=== PATIENT | female | born 1970 | race Asian ===

== ENCOUNTER → 2022-06-12 | Outpatient (CLI) | payer OTHER ==
[2022-06-13 05:07] LABS: RUBELLA AB IGG-REFLAB 8.55 index (Immune >0.99); RUBEOLA (MEASLES) IGG >300.0 AU/mL (Immune >16.4)
== END | disposition home or self-care (01) ==
LOC: LABMN 10:19
PROVIDERS: ATTEND Internal Medicine
DX: Z02.1 Encounter for pre-employment examination (principal); R76.11 Nonspecific reaction to tuberculin skin test without active tuberculosis
CPT/HCPCS: 71045; 86706; 86735; 86762; 86765; 86787; 36415-L1; 36415-TC